=== PATIENT | female | born 1980 | race Caucasian/White ===

== ENCOUNTER 2019-05-21 01:17 | Emergency (ER) | payer BC ==
[2019-05-21] MEDS ORDERED: IBUPROFEN 600 MG TABLET PO ONE (01:42)
--- NOTE | 2019-05-21 01:46 | ER Document Report ---
ED General - General Chief Complaint: Flank Pain Stated Complaint: LOWER RIGHT SIDE BACK PAIN Time Seen by Provider: 05/21/19 01:33 Notes: Patient is a 39-year-old female that comes to the emergency department for chief complaint of right flank pain. She states that 3 days ago she started having painful urination with burning and hesitancy, she states that she was placed on azithromycin when she did the on-call provider phone system, she states she felt this was not correct so she went to urgent care and has taken 3 doses of Macrobid but her symptoms are persisting. TRAVEL OUTSIDE OF THE [place] IN LAST 30 DAYS: No - Related Data Allergies/Adverse Reactions: No Known Allergies Allergy (Verified 05/21/19 01:21) Past Medical History - General Information source: Patient - Social History Smoking Status: Never Smoker Frequency of alcohol use: None Drug Abuse: None Lives with: Family Family History: Reviewed & Not Pertinent - Immunizations Immunizations up to date: Yes Hx Diphtheria, Pertussis, Tetanus Vaccination: Yes Review of Systems - Review of Systems Constitutional: No symptoms reported EENT: No symptoms reported Cardiovascular: No symptoms reported Respiratory: No symptoms reported Gastrointestinal: No symptoms reported Genitourinary: See HPI Female Genitourinary: No symptoms reported Musculoskeletal: No symptoms reported Skin: No symptoms reported Hematologic/Lymphatic: No symptoms reported Neurological/Psychological: No symptoms reported Physical Exam - Vital signs Vitals: Temp Pulse Resp BP Pulse Ox 97.7 F 91 18 137/82 H 100 05/21/19 01:38 05/21/19 01:38 05/21/19 01:38 05/21/19 01:38 05/21/19 01:38 - Notes Notes: GENERAL: Alert, interacts well. No acute distress. HEAD: Normocephalic, atraumatic. EYES: Pupils equal, round, and reactive to light. Extraocular movements intact. ENT: Oral mucosa moist, tongue midline. Oropharynx unremarkable. Airway patent. NECK: Full range of motion. Supple. Trachea midline. LUNGS: Clear to auscultation bilaterally, no wheezes, rales, or rhonchi. No respiratory distress. HEART: Regular rate and rhythm. No murmur ABDOMEN: Soft, non-tender. Non-distended. Bowel sounds present in all 4 quadrants. GENITOURINARY: Deferred EXTREMITIES: Moves all 4 extremities spontaneously. No edema, normal radial and dorsalis pedis pulses bilaterally. No cyanosis. BACK: no cervical, thoracic, lumbar midline tenderness. No CVA tenderness. No saddle anesthesia, normal distal neurovascular exam. Moves all extremities in full range of motion. NEUROLOGICAL: Alert and oriented x3. Normal speech. Cranial nerves II through XII grossly intact. PSYCH: Normal affect, normal mood. SKIN: Warm, dry, normal turgor. No rashes or lesions noted. Course - Re-evaluation Re-evalutation: Patient well-appearing. CBC, chemistry unremarkable. Urinalysis does appear to show infection. Patency test negative. Patient to start her Macrobid but tells me it is not working. This appears to be true. Patient has no CVA tenderness, abdominal tenderness, vaginal discharge, or fever. Given a dose of Rocephin because of her still having symptoms, culture placed, placed on Keflex. Discussed expectations, follow-up, return precautions. Patient states appreciation and agreement. Stable at time of discharge. - Vital Signs Vital signs: Temp Pulse Resp BP Pulse Ox 98.3 F 69 16 111/64 98 05/21/19 03:44 05/21/19 03:44 05/21/19 03:44 05/21/19 03:44 05/21/19 03:44 - Laboratory Result Diagrams: 05/21/19 01:39 05/21/19 01:39 Laboratory results interpreted by me: 05/21/19 05/21/19 01:20 01:39 Glucose 125 H Ur Leukocyte Esterase TRACE H Discharge - Discharge Clinical Impression: Right flank pain, Dysuria Condition: Stable Disposition: HOME, SELF-CARE Additional Instructions: Your work-up does indicate a urinary tract infection. We have a culture growing in our lab. Take the cephalexin as prescribed to completion. Drink plenty of fluids and rest. Follow-up with primary care. Return if you worsen including vomiting, fever, severe worsening pain, or any other concerning symptoms. Prescriptions: Cephalexin Monohydrate [Keflex 500 mg Capsule] 500 mg PO BID 7 Days #14 capsule Forms: Return to Work
[2019-05-21 01:54] LABS: ABSOLUTE EOSINOPHILS # (AUTO) 0.1 10^3/uL (0.0-0.6); ABSOLUTE LYMPHOCYTES (AUTO) 2.4 10^3/uL (0.5-4.7); ABSOLUTE MONOCYTES (AUTO) 0.4 10^3/uL (0.1-1.4); ABSOLUTE NEUT (AUTO) 2.6 10^3/uL (1.7-8.2); BASOPHILS % (AUTO) 0.4 % (0-2); EOSINOPHILS % (AUTO) 1.4 % (0-6); HEMATOCRIT 36.1 % (36.0-47.0); HEMOGLOBIN 12.2 g/dL (12.0-15.5); LYMPHOCYTES % (AUTO) 44.3 % (13-45); MEAN CORPUSCULAR HEMOGLOBIN 31.3 pg (27.0-33.4); MEAN CORPUSCULAR HGB CONC 33.9 g/dL (32.0-36.0); MEAN CORPUSCULAR VOLUME 92 fl (80-97); MONOCYTES % (AUTO) 7.1 % (3-13); PLATELET COUNT 189 10^3/uL (150-450); RED BLOOD COUNT 3.91 10^6/uL (3.72-5.28); RED CELL DISTRIBUTION WIDTH 13.4 % (11.5-14.0); SEGMENTED NEUTROPHILS % (AUTO) 46.8 % (42-78); TOTAL CELLS COUNTED % (AUTO) 100 %; WHITE BLOOD COUNT 5.5 10^3/uL (4.0-10.5)
[2019-05-21 01:56] LABS: APPEARANCE,URINE CLEAR; BILIRUBIN,URINE NEGATIVE (NEGATIVE); COLOR,URINE YELLOW; GLUCOSE, URINE NEGATIVE (NEGATIVE); KETONES,URINE NEGATIVE (NEGATIVE); LEUKOCYTE ESTERASE,URINE TRACE (NEGATIVE); NITRITE,URINE NEGATIVE (NEGATIVE); PROTEIN,URINE NEGATIVE (NEGATIVE); UROBILINOGEN,URINE NEGATIVE mg/dL (<2.0)
[2019-05-21 02:17] LABS: ALBUMIN 4.1 g/dL (3.5-5.0); ALKALINE PHOSPHATASE 50 U/L (38-126); ANION GAP 7 (5-19); ASPARTATE AMINO TRANSFERASE 24 U/L (14-36); BILIRUBIN,TOTAL 0.3 mg/dL (0.2-1.3); BLOOD UREA NITROGEN 15 mg/dL (7-20); CALCIUM 9.1 mg/dL (8.4-10.2); CARBON DIOXIDE 28 mmol/L (22-30); CHLORIDE 105 mmol/L (98-107); GLUCOSE 125 mg/dL (75-110); TOTAL PROTEIN 7.3 g/dL (6.3-8.2)
[2019-05-21] MEDS ORDERED: ONDANSETRON ODT 4 MG TAB (6 TAB/ER DISP) PO PRN (02:57)
[2019-05-21] MEDS ORDERED: CEFTRIAXONE INJ 1000 MG VIAL IM ONE (02:57)
[2019-05-21] MEDS ORDERED: LIDOCAINE 1% INJ-PF (10 MG/ML) 30 ML SDV INJ ONE (02:57)
[2019-05-21 03:46] VITALS: BP 111/64
== END 2019-05-21 03:46 | disposition home or self-care (01) ==
LOC: ER 01:17
DX: R10.9 Unspecified abdominal pain (principal); R30.0 Dysuria; M54.9 Dorsalgia, unspecified; R39.11 Hesitancy of micturition
CPT/HCPCS: 36415; 87086; 83690; 85025; 81025; 80053; 81001; J3490; J0696